=== PATIENT | male | born 1990 | race Caucasian/White ===

== ENCOUNTER 2018-11-04 00:44 | Emergency (ER) | payer SELFPAY ==
[~2018-11-04] VITALS: Ht 180.3 cm; Wt 77.1 kg
[2018-11-04 00:55] VITALS: BP 119/82
--- NOTE | 2018-11-04 00:55 | NUR ---
ED Nurse Note: Patient [facility] c/o medical clearance. patient presents with a wound on the left lower leg. patient is alert and oriented x4, ambulatory with a steady gait, VSS
[2018-11-04] MEDS ORDERED: Bacitracin Oint UD TOPIC ONE (01:15)
--- NOTE | 2018-11-04 01:17 | Emergency Room Report ---
History of Present Illness General Chief Complaint: General Complaint Source: Patient Present Illness HPI Is a 28-year-old male brought in by police for medical clearance. He presents with chief complaint of left foot pain. He said that please have his open a door and hit his foot. Onset just prior to arrival. No other injury. He said it was bleeding. No other complaint. Pain is 7 out of 10. Allergies: Coded Allergies: No Known Allergies (Unverified , 11/04/18) Patient History Past Medical History: see triage record, old chart reviewed Past Surgical History: none Pertinent Family History: none Social History: Denies: smoking Immunizations: other Reviewed Nursing Documentation: PMH: Agreed; PSxH: Agreed Nursing Documentation-PMH Past Medical History Deferred: Pt Cognitively Impaired Past Medical History: No Stated History Review of Systems Eye: Denies: eye pain, blurred vision ENT: Denies: ear pain, nose congestion, throat swelling Respiratory: Denies: cough, shortness of breath Cardiovascular: Denies: chest pain, palpitations Gastrointestinal: Denies: abdominal pain, diarrhea, nausea, vomiting Musculoskeletal: Denies: back pain, joint pain Skin: Denies: rash Neurological: Denies: headache, numbness Endocrine: Denies: increased thirst, increased urine Hematologic/Lymphatic: Denies: easy bruising All Other Systems: negative except mentioned in HPI Physical Exam Vital Signs Date Time Temp Pulse Resp B/P (MAP) Pulse Ox O2 Delivery O2 Flow Rate FiO2 11/04/18 00:50 98.4 80 18 125/87 (100) 98 Room Air Vitals normal Sp02 EP Interpretation: reviewed, normal General Appearance: well appearing, no apparent distress, alert Head: normocephalic, atraumatic Eyes: bilateral eye PERRL, bilateral eye EOMI ENT: hearing grossly normal, normal pharynx Neck: full range of motion, supple, no meningismus Respiratory: chest non-tender, lungs clear, normal breath sounds Cardiovascular #1: regular rate, rhythm, no murmur Gastrointestinal: normal bowel sounds, non tender, no mass, no organomegaly, no bruit, non-distended Musculoskeletal: back normal, gait/station normal, normal range of motion, other - Foot: There is an abrasion of the base of the fifth metatarsal bone. Mild tenderness. Psychiatric: mood/affect normal Medical Decision Making Diagnostic Impression: Primary Impression: Foot abrasion Qualified Codes: S90.812A - Abrasion, left foot, initial encounter ER Course Presents with a abrasion to the foot. No fracture dislocation. Nothing to be sutured. Other X-Ray Diagnostic Results Other X-Ray Diagnostic Results : X-Ray ordered: Left foot x-rays # of Views/Limited Vs Complete: 3 View Indication: Pain EP Interpretation: Yes Interpretation: no dislocation, no soft tissue swelling, no fractures Impression: No acute disease Electronically Signed by: Bandar Aec MD Last Vital Signs Date Time Temp Pulse Resp B/P (MAP) Pulse Ox O2 Delivery O2 Flow Rate FiO2 11/04/18 00:50 98.4 80 18 125/87 (100) 98 Room Air Status: improved Disposition: D/C TO LAW [facility]NF[facility]CEMENT IN [facility] Condition: Stable Additional Instructions: Follow-up with your doctor in 7 days. Return if worse. Bandar Ace MD Nov 04, 2018 01:17
[2018-11-04 01:20] VITALS: BP 125/87
--- NOTE | 2018-11-04 01:20 | NUR ---
ER DISCHARGE NOTE: Patient is cleared to be discharged per ERMD, pt is aox4, on room air, with stable vital signs. pt was given dc and prescription instructions, pt was able to verbalize understanding, pt id band removed without complications. pt is able to ambulate with steady gait. pt took all belongings.
--- NOTE | 2018-11-04 10:31 | Diagnostic Imaging Report ---
Indication: Pain, trauma Technique: 3 views left foot Comparison: none Findings: No acute fractures. No dislocations. The joint spaces are preserved. Impression: No acute process
== END 2018-11-04 01:20 ==
LOC: EMR 01:20
DX: S90.812A Abrasion, left foot, initial encounter (principal); W22.8XXA Striking against or struck by other objects, initial encounter; Y92.89 Other specified places as the place of occurrence of the external cause
CPT/HCPCS: 99283